=== PATIENT | female | born 1945 | race African-American/Black ===

== ENCOUNTER 2017-02-21 05:46 | Outpatient (CLI) | payer MEDICARE ==
[~2017-02-21] VITALS: Ht 157.5 cm; Wt 72.6 kg
[~2017-02-21 05:46] MED LIST: AMLO10TA82 PO; BENA20TA72 PO; CLON1TAB18 PO; DEXL60CA5 PO; EST.625T PO; ESTR0.455 PO; GBPN100C PO; HYDR-3714 PO; METR500T PO; NF-FLON16G; QNPR20T PO; RNT150T PO; SCR1T1 PO; SULF-222 PO; VARE0.5T PO
[2017-02-21] MEDS ORDERED: PRAV20TA3 PO ×2 (10:52)
== END 2017-02-21 11:00 ==
LOC: PREOP 05:46
PROVIDERS: ATTEND Surgery
DX: Z01.818 Encounter for other preprocedural examination (principal); R19.5 Other fecal abnormalities

== ENCOUNTER 2017-02-25 07:59 | Day surgery (SDC) | payer MEDICARE ==
[~2017-02-25] VITALS: Ht 157.5 cm; Wt 72.6 kg
[~2017-02-25 07:59] MED LIST changes: +PRAV20TA3 PO
[2017-02-25] MEDS ORDERED: NS IV 500 ML 500 ML ONE (08:01)
[2017-02-25] MEDS ORDERED: NS IV 500 ML 500 ML IV ONE (08:15)
[2017-02-25] MEDS ORDERED: FLUMAZENIL (ROMAZICON) 0.1 MG/ML 5 ML VIAL INJ PRN (08:15)
[2017-02-25] MEDS ORDERED: NALOXONE 0.4 MG/ML 1 ML (NARCAN) VIAL IVP PRN (08:15)
[2017-02-25 08:20] VITALS: BP 118/89
--- NOTE | 2017-02-25 08:55 | Conscious Sedation/ASA ---
Conscious Sedation Pre-Proced Time Reviewed: 08:55 ASA Class: 2 Airway Mallampati Classification: ([place] appropriate class) I. II. III, IV Lungs Heart ASA score ASA 1: a normal healthy patient ASA 2: a patient with a mild systemic disease (mid diabetes, controlled hypertension, obesity ASA 3: a patient with a severe systemic disease that limits activity (angina , COPD, prior Myocardial infarction) ASA 4: a patient with an incapacitating disease that is a constant threat to life (CHF, renal failure) ASA 5: a moribund patient not expected to survive 24 hrs. (ruptured aneurysm) ASA 6: a declared brain patient whose organs are being harvested. For emergent operations, add the letter E after the classification Grade 2 Sedation Plan: Discussed options with patient/fam Note The patient is an appropriate candidate to undergo the planned procedure, sedation, and anesthesia. The patient immediately re-assessed prior to indication. LETITIA SIMMONS MD February 25, 2017 8:55 am
[2017-02-25] MEDS ORDERED: MIDAZOLAM 2 MG/2 ML (VERSED) VIAL ONE ×3 (09:08)
[2017-02-25] MEDS ORDERED: fentaNYL INJECTION 100 MCG/2 ML AMP ONE ×2 (09:08→09:27)
[2017-02-25] MEDS: fentaNYL INJECTION 100 MCG/2 ML AMP IVP PRN ×3 (09:20→09:30)
[2017-02-25] MEDS: MIDAZOLAM 2 MG/2 ML (VERSED) VIAL IVP PRN ×3 (09:22→09:32)
--- NOTE | 2017-02-25 09:54 | Endoscopy Procedure Report ---
Endoscopy Report Date: February 25, 2017 Preoperative Diagnosis: ddiarrhea and rectal bleeding Study Performed: Colonoscopy Procedure Instrument: Colonoscope Endo Procedure/Findings Findings 1.: Diverticulitis, Internal Hemorrhoids Copy Copies To 1: MATIAS RYAN MD, XAVIER M MD February 25, 2017 9:54 am
--- NOTE | 2017-02-25 09:55 | Discharge Inst-Simple/Standard ---
Discharge Inst-Standard Discharge Medications New, Converted or Re-Newed RX: Other Patient Instructions/Follow Up Plan of Care/Instructions/FU: please call for Flagyl 500 mg 3 times a day for 7 days to her pharmacy. No refill Activity as Tolerated: Yes Discharge Diet: No Restrictions LETITIA SIMMONS MD February 25, 2017 9:55 am
[2017-02-25 10:05] VITALS: BP 129/81
[2017-02-25 10:35] VITALS: BP 122/71
[2017-02-25 10:46] VITALS: BP 122/71
--- NOTE | 2017-02-25 22:42 | OPERATIVE REPORT ---
DATE OF SERVICE: 02/25/2017 PROCEDURE PERFORMED: Colonoscopy. INDICATIONS FOR PROCEDURE: This lady came in for colonoscopy to investigate diarrhea followed by intermittent rectal bleeding. She was found to have hemorrhoids based on a colonoscopy in 2011. Informed consent was obtained after reviewing the procedure in detail. SURGEON: Letitia Simmons MD DESCRIPTION OF PROCEDURE: She was placed in left lateral decubitus position and her vital signs were monitored. Conscious sedation was achieved using Versed and fentanyl. Examination of the perianal area revealed external hemorrhoids and large skin tags. Digital examination was otherwise unremarkable. The colonoscope was then introduced into the rectum and advanced all the way up to the cecum. Subsequently, it was withdrawn slowly and the mucosa examined in a systematic fashion. The quality of bowel preparation was excellent. FINDINGS: 1. External and internal hemorrhoids, the source of her bleeding. 2. Inflamed sigmoid diverticula possibly due to resolving diverticulitis. 3. No polyps were found. She was tolerated the procedure well and was taken back to the nursing area in stable condition. IMPRESSION: 1. Rectal bleeding and diarrhea. 2. Resolving diverticulitis. PLAN: 1. We will treat with oral Flagyl. 2. With regard to hemorrhoids, conservative treatment is reasonable. Job ID: [id number] DocumentID: [id number] Dictated Date: 02/25/2017 09:51:50 It Operations Analyst Date: 02/25/2017 14:29:31 Dictated By: LETITIA SIMMONS MD
== END 2017-02-25 10:55 | disposition home or self-care (01) ==
LOC: ENDO 07:59
PROVIDERS: ATTEND Surgery
DX: K57.92 Diverticulitis of intestine, part unspecified, without perforation or abscess without bleeding (principal); K62.5 Hemorrhage of anus and rectum; R19.7 Diarrhea, unspecified; K64.4 Residual hemorrhoidal skin tags; I10 Essential (primary) hypertension; K21.9 Gastro-esophageal reflux disease without esophagitis; E78.5 Hyperlipidemia, unspecified

== ENCOUNTER → 2020-03-14 | Outpatient (CLI) | payer MEDICARE ==
--- NOTE | 2020-03-14 13:58 | Diagnostic Imaging Report ---
EXAMINATION: CT Lung Screening. INDICATION: 50 pack-year smoking history. TECHNIQUE: Noncontrast, low-dose CT imaging performed according to the lung cancer screening protocol. Auto Exposure Controls were utilize during the CT exam to meet ALARA standards for radiation dose reduction. COMPARISON: There are no prior CT chest examinations available for comparison. FINDINGS: There is a small 2.6 mm noncalcified nodule in the periphery of the left upper lung (image 58 of 217). I suspect that this is a benign process. There is no other parenchymal lung mass identified. There is no sign of failure, pneumonia, or pleural effusion to indicate an acute abnormality either. The heart size is within normal limits. There are extensive coronary artery calcifications evident. The aorta is not abnormally dilated. There is no obvious mediastinal or hilar adenopathy. The thyroid gland, where visualized, is unremarkable. The breasts were imaged showing no definite abnormality. The sections through the upper abdomen are unremarkable for an acute abnormality. The gallbladder is surgically absent. The bone windows show no sign of a fracture or destructive lesion. IMPRESSION: 1. There is a small 2.6 mm nodule in the periphery of the left upper lung. This is most likely a benign process. A followup CT low-dose lung cancer screening exam in 1 year would be recommended for continued evaluation. 2. There is no other lung nodule identified. 3. There is no sign of an acute cardiopulmonary abnormality. 4. There is extensive coronary artery disease. LUNG-RADS CATEGORY:2 MODIFIER: OTHER SIGNIFICANT FINDINGS: Dictated by: Dictated on workstation # [id number]
== END ==
LOC: RAD 12:08
PROVIDERS: ATTEND Family Medicine
DX: Z12.2 Encounter for screening for malignant neoplasm of respiratory organs (principal); I25.10 Atherosclerotic heart disease of native coronary artery without angina pectoris; R91.1 Solitary pulmonary nodule; F17.210 Nicotine dependence, cigarettes, uncomplicated; Z90.49 Acquired absence of other specified parts of digestive tract

== ENCOUNTER → 2020-03-29 | Outpatient (CLI) | payer MEDICARE, MEDICAID ==
--- NOTE | 2020-03-29 13:53 | Diagnostic Imaging Report ---
PROCEDURE: MRI lumbar spine. TECHNIQUE: Multiplanar, multisequence MRI of the lumbar spine was performed without contrast. INDICATION: Chronic back pain. Prior lumbar spine surgery. COMPARISON: None. FINDINGS: There are five lumbar-type vertebral bodies. Minimal anterolisthesis of L3 on L4. Alignment is otherwise unremarkable. Vertebral body heights are preserved. There are Modic type I degenerative endplate changes at L4-L5 and L5-S1. Bone marrow signal is otherwise unremarkable. No abnormal signal in the conus which terminates at L1-L2. Normal morphology of the cauda equina. L1-L2: No spinal canal, lateral recess, or neuroforaminal narrowing. L2-L3: Facet arthropathy and ligamentous hypertrophy result in mild right lateral recess narrowing. No substantial spinal canal or neuroforaminal narrowing. L3-L4: Annular disc bulge, ligamentous hypertrophy, and facet arthropathy result in mild spinal canal and bilateral lateral recess narrowing. Disc space height loss also contributes to moderate bilateral neuroforaminal narrowing. L4-L5: Annular disc bulge, ligamentous hypertrophy, and facet arthropathy result in mild spinal canal and bilateral lateral recess narrowing. Moderate right and severe left neuroforaminal narrowing. L5-S1: Postoperative findings of a right hemilaminotomy. Posterior disc osteophyte complex and ligamentous hypertrophy result in mild spinal canal and bilateral lateral recess narrowing. Severe bilateral neuroforaminal narrowing. IMPRESSION: 1. Postoperative findings of right hemilaminotomy at L5-S1. 2. High-grade bilateral neuroforaminal narrowing, detailed above. No high-grade spinal canal narrowing. 3. Modic type I degenerative endplate changes at L4-S1. Dictated by: Dictated on workstation # [id number]
== END ==
LOC: RAD 12:19
PROVIDERS: ATTEND Family Medicine
DX: M48.061 Spinal stenosis, lumbar region without neurogenic claudication (principal); M47.897 Other spondylosis, lumbosacral region
CPT/HCPCS: 72148

== ENCOUNTER → 2021-06-14 | Outpatient (CLI) | payer MEDICARE, MEDICAID ==
--- NOTE | 2021-06-14 08:38 | Diagnostic Imaging Report ---
CT CHEST SCREENING WO TECHNIQUE: Low-dose unenhanced CT of the chest was performed according to the screening protocol. Coronal MIP and sagittal MPR reformats are created. Automatic exposure controls were utilized to keep dose as low as reasonably achievable. INDICATION: 60 pack year history of smoking. Current smoker. COMPARISON: 03/14/2020 FINDINGS: Pulmonary findings: No endoluminal nodule within the trachea. No edema or pneumonia. Unchanged 2 mm dense left upper lobe pulmonary nodule that is benign in nature. No new suspicious pulmonary nodules. Extrapulmonary findings: No axillary or mediastinal lymphadenopathy. No pericardial or pleural effusion. Coronary artery calcifications are unchanged. Normal caliber thoracic aorta with moderate atherosclerotic plaquing. Limited assessment upper abdomen is unremarkable. No concerning focal osseous lesions. IMPRESSION: No change indicate clinically active lung cancer. Lung-RADS category: 2 - Benign appearance or behavior Recommendations: Continued annual screening with low-dose CT in 12 months. Dictated by: Dictated on workstation # [id number]
== END ==
LOC: RAD 07:59
PROVIDERS: ATTEND Family Medicine
DX: Z12.2 Encounter for screening for malignant neoplasm of respiratory organs (principal); F17.210 Nicotine dependence, cigarettes, uncomplicated
CPT/HCPCS: 71271

== ENCOUNTER 2021-08-22 05:41 | Outpatient (CLI) | payer MEDICARE, MEDICAID ==
[~2021-08-22] VITALS: Ht 157.5 cm; Wt 74.9 kg
[2021-08-23] MEDS ORDERED: CELE100C84 PO (09:16)
[2021-08-23] MEDS ORDERED: MONT10TA32 PO (09:16)
[2021-08-23] MEDS ORDERED: TRAZ-227 PO (09:16)
== END 2021-08-23 13:25 | disposition home or self-care (01) ==
LOC: PREOP 05:41
PROVIDERS: ATTEND Surgery
DX: Z01.818 Encounter for other preprocedural examination (principal)

== ENCOUNTER 2021-08-24 11:19 | Day surgery (SDC) | payer MEDICARE, MEDICAID ==
[~2021-08-24] VITALS: Ht 157.5 cm; Wt 75.0 kg
[~2021-08-24 11:19] MED LIST changes: +CELE100C84 PO; +MONT10TA32 PO; +TRAZ-227 PO
[2021-08-24] MEDS ORDERED: LACTATED RINGERS 1,000 ML IV STA (11:26)
[2021-08-24] MEDS ORDERED: LACTATED RINGERS 1,000 ML IV ONE (11:28)
[2021-08-24 11:49] VITALS: BP 124/74
[2021-08-24] MEDS ORDERED: PROPOFOL INJECTION 50 ML IV ONE (14:29)
--- NOTE | 2021-08-24 14:36 | Progress Note-Pre Operative ---
Pre-Operative Progress Note H&P Reviewed The H&P was reviewed, patient examined and no changes noted. Date Seen by Provider: Aug 24, 2021 Time Seen by Provider: 14:35 Date H&P Reviewed: Aug 24, 2021 Time H&P Reviewed: 14:35 Pre-Operative Diagnosis: hematochezia, hx polyps ANY STILES DO Aug 24, 2021 14:36
[2021-08-24 15:05] VITALS: BP 104/64
--- NOTE | 2021-08-24 15:08 | Anesthesia-General Post-Op ---
MAC Patient Condition Mental Status/LOC: Same as Preop Cardiovascular: Satisfactory Nausea/Vomiting: Absent Respiratory: Satisfactory Pain: Controlled Complications: Absent Post Op Complications Complications None Follow Up Care/Instructions Patient Instructions None needed. Anesthesiology Discharge Order Discharge Order Patient is doing well, no complaints, stable vital signs, no apparent adverse anesthesia problems. No complications reported per nursing. DAV SALCEDO CRNA Aug 24, 2021 15:08
[2021-08-24 15:10] VITALS: BP 105/67
[2021-08-24 15:15] VITALS: BP 108/64
[2021-08-24 15:35] VITALS: BP 108/64
[2021-08-24 15:36] VITALS: BP 110/60
--- NOTE | 2021-08-25 06:38 | OPERATIVE REPORT ---
DATE OF SERVICE: 08/24/2021 PREOPERATIVE DIAGNOSIS: Hematochezia, history of polyps. POSTOPERATIVE DIAGNOSIS: Colon polyps, diverticulosis. PROCEDURE: Colonoscopy with hot biopsy polypectomy x4. SURGEON: Any Terrazas DO ANESTHESIA: Per FORESTRY FIRE AIDE. ESTIMATED BLOOD LOSS: None. COMPLICATIONS: None. INDICATIONS: The patient is a 76-year-old female needing colonoscopy for further evaluation she has history of polyps. She understands risks and benefits of procedure and wishes to proceed. Consent was signed in the chart. DESCRIPTION OF PROCEDURE: The patient was taken to the endoscopy suite, placed in left lateral recumbent position. Timeout was performed. Digital rectal exam was performed noting some internal hemorrhoids. No palpable polyps, masses or ulcerations. Scope was inserted in the rectum, advanced all the way to cecum with minimal difficulty. Prep was adequate. Scope was slowly retracted back. No polyps, masses or ulcerations within the cecum. In the ascending colon, there were 2 polyps, which hot biopsy polypectomies were performed. Scope was then continuously retracted back and in transverse colon, another polyp was present, which hot biopsy polypectomy was performed. Scope was then continuously slowly retracted back and there were no polyps, masses or ulcerations in the descending colon and in sigmoid colon, there was a small polyp present, which hot biopsy polypectomy was performed. Scope was then continuously slowly retracted back into the rectum where the scope was retroflexed just noting hemorrhoids. No other pathology. Scope was returned to its normal position, slowly withdrawn until completely removed. The patient tolerated procedure well without any complications. She was taken to recovery room in stable condition. RECOMMENDATIONS: The patient will need repeat colonoscopy on as needed basis. Also noting through the sigmoid colon diverticulosis. The patient also recommended high fiber diet for the diverticulosis. Any return of bleeding, the patient will be seen at that time. Job ID: [id number] DocumentID: [id number] Dictated Date: 08/24/2021 20:53:39 Tool Room Lathe Operator Date: 08/25/2021 06:37:26 Dictated By: ANY TERRAZAS DO
== END 2021-08-24 15:35 | disposition home or self-care (01) ==
LOC: ENDO 11:19
PROVIDERS: ATTEND Surgery
DX: D12.2 Benign neoplasm of ascending colon (principal); D12.3 Benign neoplasm of transverse colon; K63.5 Polyp of colon; K57.30 Diverticulosis of large intestine without perforation or abscess without bleeding; Z79.899 Other long term (current) drug therapy; F17.210 Nicotine dependence, cigarettes, uncomplicated; I10 Essential (primary) hypertension; E78.00 Pure hypercholesterolemia, unspecified; R22.1 Localized swelling, mass and lump, neck; E78.5 Hyperlipidemia, unspecified

== ENCOUNTER → 2021-08-29 | Outpatient (CLI) | payer MEDICAID, MEDICARE ==
--- NOTE | 2021-08-29 10:43 | Diagnostic Imaging Report ---
Fullness along the base of the neck bilaterally. FINDINGS: Real-time imaging in the supraclavicular region of the neck in the area of concern shows subcutaneous fat. No discrete masses or cyst demonstrated. No adenopathy. IMPRESSION: Prominent subcutaneous fat base of the neck bilaterally. Dictated by: Dictated on workstation # [id number]
== END ==
LOC: RAD 09:13
PROVIDERS: ATTEND Surgery
DX: R22.1 Localized swelling, mass and lump, neck (principal)
CPT/HCPCS: 76536

== ENCOUNTER → 2022-09-28 | Outpatient (CLI) | payer MEDICARE ==
[~2022-09-28] MED LIST changes: +MONT-40 PO; -MONT10TA32 PO
--- NOTE | 2022-09-28 11:36 | Diagnostic Imaging Report ---
PROCEDURE: US left lower extremity venous. TECHNIQUE: Multiple real-time grayscale images were obtained over the left lower extremity in various projections. Additional duplex Doppler and color Doppler images were also obtained. INDICATION: Left leg pain. There is no evidence of left lower extremity DVT. Left lower extremity deep venous system shows normal compressibility with normal response to augmentation and Valsalva. No fluid collection or mass is detected. IMPRESSION: No evidence of left lower extremity DVT. Dictated by: Dictated on workstation # [id number]
--- NOTE | 2022-09-28 11:36 | Diagnostic Imaging Report ---
INDICATION: Left groin pain. Sonographic interrogation left groin was performed at the area of pain. No sonographic abnormality is identified. No solid or cystic masses detected. No fluid collection is identified. IMPRESSION: No sonographic abnormality is detected. Dictated by: Dictated on workstation # [id number]
== END ==
LOC: RAD 11:00
PROVIDERS: ATTEND Nurse Practitioner Family
DX: M79.652 Pain in left thigh (principal); R10.32 Left lower quadrant pain
CPT/HCPCS: 76881